=== PATIENT | male | born 1975 | race American Indian/Alaskan Native ===

== ENCOUNTER 2018-02-28 16:26 | Emergency (ER) | payer SELFPAY ==
[2018-02-28 17:11] VITALS: BP 126/73
--- NOTE | 2018-02-28 18:14 | Emergency Department Report ---
- General Chief Complaint: Wound/Laceration Stated Complaint: RIGHT LEG LACERATION Time Seen by Provider: 02/28/18 18:05 Source: patient Mode of arrival: Ambulatory Limitations: No Limitations - History of Present Illness Initial Comments: 42 PMH none presents with laceration to right whitfield. Patient states he accidentally cut himself with a machete. States he was chopping down brush outside his home swollen machete hard and cut through branches but then cut the top frontal portion of his right whitfield. No active bleeding at this time. Covered with gauze. Patient is ambulatory without assistance. Denies sustaining any other injuries. -: This afternoon Extremity Location: Right: Lower Leg Place: outdoors Patient Tetanus UTD: No Context: accidental Associated Symptoms: pain - Related Data Previous Rx's Medication Instructions Recorded Last Taken Type Bacitracin Zinc Oint [Antibiotic 1 applicatio TP BID #1 tube 02/28/18 Unknown Rx Oint] Cephalexin [Keflex] 500 mg PO Q12HR #14 cap 02/28/18 Unknown Rx Ibuprofen [Motrin] 800 mg PO Q8HR PRN #20 tablet 02/28/18 Unknown Rx Allergies Allergy/AdvReac Type Severity Reaction Status Date / Time No Known Allergies Allergy Unverified 02/28/18 17:14 ED Review of Systems ROS: Stated complaint: RIGHT LEG LACERATION Other details as noted in HPI Constitutional: denies: chills, fever Eyes: denies: eye pain, eye discharge, vision change ENT: denies: ear pain, throat pain Respiratory: denies: cough, shortness of breath, wheezing Cardiovascular: denies: chest pain, palpitations Endocrine: no symptoms reported Gastrointestinal: denies: abdominal pain, nausea, diarrhea Genitourinary: denies: urgency, dysuria Musculoskeletal: denies: back pain, joint swelling, arthralgia Skin: denies: rash, lesions Neurological: denies: headache, weakness, paresthesias Psychiatric: denies: anxiety, depression Hematological/Lymphatic: denies: easy bleeding, easy bruising ED Past Medical Hx - Past Medical History Previous Medical History?: No - Surgical History Past Surgical History?: No - Social History Smoking Status: Current Some Day Smoker Substance Use Type: Marijuana - Medications Home Medications: Home Medications Medication Instructions Recorded Confirmed Last Taken Type Bacitracin Zinc Oint [Antibiotic 1 applicatio TP BID #1 tube 02/28/18 Unknown Rx Oint] Cephalexin [Keflex] 500 mg PO Q12HR #14 cap 02/28/18 Unknown Rx Ibuprofen [Motrin] 800 mg PO Q8HR PRN #20 tablet 02/28/18 Unknown Rx ED Physical Exam - General Limitations: No Limitations General appearance: alert, in no apparent distress - Head Head exam: Present: atraumatic, normocephalic - Eye Eye exam: Present: normal appearance, PERRL, EOMI - ENT ENT exam: Present: mucous membranes moist - Neck Neck exam: Present: normal inspection - Respiratory Respiratory exam: Present: normal lung sounds bilaterally. Absent: respiratory distress - Cardiovascular Cardiovascular Exam: Present: regular rate, normal rhythm. Absent: systolic murmur, diastolic murmur, rubs, gallop - GI/Abdominal GI/Abdominal exam: Present: soft, normal bowel sounds - Rectal Rectal exam: Present: deferred - Extremities Exam Extremities exam: Present: normal inspection - Expanded Lower Extremity Exam Right Lower Leg exam: Present: laceration (vertical laceration approximately 2-3 inches right mid anterior whitfield region) - Back Exam Back exam: Present: normal inspection - Neurological Exam Neurological exam: Present: alert, oriented X3, CN II-XII intact, normal gait - Psychiatric Psychiatric exam: Present: normal affect, normal mood - Skin Skin exam: Present: warm, dry, intact, normal color. Absent: rash ED Course Vital Signs 02/28/18 02/28/18 16:54 16:58 Temperature 99.5 F Pulse Rate 84 84 Respiratory 16 Rate Blood Pressure 126/73 126/73 O2 Sat by Pulse 99 100 Oximetry - Laceration /Wound Repair Lower Distal Leg Wound Location: lower extremity Wound Length (cm): 4 Wound's Depth, Shape: superficial, linear Irrigated w/ Saline (ccs): 500 Betadine Prep?: Yes Anesthesia: 1% Lidocaine Volume Anesthetic (ccs): 6 Wound Repaired With: sutures Suture Size/Type: 3:0, proline Number of Sutures: 8 Layer Closure?: No Sterile Dressing Applied?: Yes (gauze) Progress: Area anesthetized locally with lidocaine. Good anesthesia achieved. Good closure achieved using Prolene sutures. 8 sutures placed. Wound irrigated with saline and iodine mixture before closure. Procedure tolerated well with minimal bleeding. Covered with gauze afterward. ED Medical Decision Making - Medical Decision Making A/P: Right anterior whitfield laceration 1- sutures to be removed in ~12-14 days 2- tetanus updated today 3- Motrin when necessary, triple antibiotic ointment, course of Keflex 4- ptadvised to return to the ED for any fevers chills pus drainage erythema at site of laceration Critical care attestation.: If time is entered above; I have spent that time in minutes in the direct care of this critically ill patient, excluding procedure time. ED Disposition Clinical Impression: Laceration of right lower extremity Qualifiers: Encounter type: initial encounter Qualified Code(s): S81.811A - Laceration without foreign body, right lower leg, initial encounter Disposition: TO HOME OR SELFCARE Is pt being admited?: No Does the pt Need Aspirin: No Condition: Stable Instructions: Suture Care (ED), Laceration (ED) Additional Instructions: Sutures to be removed in approximately 12-14 days Prescriptions: Bacitracin Zinc Oint [Antibiotic Oint] 1 applicatio TP BID #1 tube Cephalexin [Keflex] 500 mg PO Q12HR #14 cap Ibuprofen [Motrin] 800 mg PO Q8HR PRN #20 tablet PRN Reason: Pain Referrals: [facility] [Provider Group] - 3-5 Days Forms: Accompanied Note, Work/School Release Form(ED) Time of Disposition: 19:31
--- NOTE | 2018-02-28 18:15 | XRay Report ---
FINAL REPORT PROCEDURE: XR TIBIA FIBULA 1V RT TECHNIQUE: RIGHT tibia and fibula radiographs, AP and lateral views. CPT 64504 HISTORY: Laceration with machete to RLE COMPARISON: No prior studies are available for comparison. FINDINGS: No fractures seen. No radiopaque foreign bodies are visualized. There is partial ossification of the patellar tendon inserting on the tibial tuberosity. IMPRESSION: No acute abnormality is seen. No evidence of fracture or radiopaque foreign body..
[2018-02-28] MEDS ORDERED: BOOSTRIX IM ONE (19:28)
[2018-02-28] MEDS ORDERED: MOTRIN PO ONE (19:28)
== END 2018-02-28 19:49 | disposition home or self-care (01) ==
LOC: ED 16:26
DX: S81.811A Laceration without foreign body, right lower leg, initial encounter (principal); F17.200 Nicotine dependence, unspecified, uncomplicated; F12.10 Cannabis abuse, uncomplicated; W27.8XXA Contact with other nonpowered hand tool, initial encounter; Y93.89 Activity, other specified; Y99.8 Other external cause status; Y92.098 Other place in other non-institutional residence as the place of occurrence of the external cause
CPT/HCPCS: 90471; 90715; 96372